=== PATIENT | male | born 1950 | race Caucasian/White ===

== ENCOUNTER → 2020-04-13 | Outpatient (CLI) | payer MEDICARE, BC | END | disposition home or self-care (01) | LOC: ROC 03-14 13:49 | PROVIDERS: ATTEND Radiology Radiation Oncology | DX: C61 Malignant neoplasm of prostate (principal) | CPT/HCPCS: G0463 ==

== ENCOUNTER 2020-05-03 07:20 | Outpatient (CLI) | payer MEDICARE, BC ==
[2020-05-03] MEDS ORDERED: LIDOCAINE/PF 1%, 30ML IV ONE (13:00)
== END 2020-05-03 23:59 | disposition home or self-care (01) ==
LOC: ROC 07:20
PROVIDERS: ATTEND Radiology Radiation Oncology
DX: C61 Malignant neoplasm of prostate (principal); Z79.899 Other long term (current) drug therapy
CPT/HCPCS: 55876; 76942; 77332; A4648

== ENCOUNTER 2020-08-26 10:14 | Outpatient (CLI) | payer MEDICARE, BC | END 2020-08-26 23:59 | disposition home or self-care (01) | LOC: ROC 10:14 | PROVIDERS: ATTEND Radiology Radiation Oncology | DX: Z08 Encounter for follow-up examination after completed treatment for malignant neoplasm (principal); Z85.46 Personal history of malignant neoplasm of prostate | CPT/HCPCS: G2251 ==